=== PATIENT | female | born 1975 | race Two or more races ===

== ENCOUNTER 2020-08-07 09:23 | Outpatient (CLI) | payer OTHER | END 2020-08-07 09:34 | disposition home or self-care (01) | LOC: RX STUDY 09:23 | PROVIDERS: ATTEND Specialist | DX: D25.1 Intramural leiomyoma of uterus (principal); D25.2 Subserosal leiomyoma of uterus; D55.0 Anemia due to glucose-6-phosphate dehydrogenase [G6PD] deficiency ==